=== PATIENT | male | born 1985 | race Caucasian/White ===

== ENCOUNTER 2016-11-30 08:14 | Emergency (ER) | payer OTHER, MEDICAID ==
[2016-11-30] MEDS ORDERED: HYDROCODONE/ACETAMINOPHEN 5-325 MG 6 TAB/DSPK PO PRN (09:46)
[2016-11-30] MEDS ORDERED: CLINDAMYCIN HCL 150 MG CAPSULE PO ONE (09:46)
--- NOTE | 2016-11-30 09:53 | ER Document Report ---
ED ENT - General Chief Complaint: Facial Swelling Stated Complaint: FACIAL SWELLING Time seen by provider: 09:47 Mode of Arrival: Ambulatory Information source: Patient Notes: 31-year-old male presents to ED for left upper cheek swelling. He states he's had this dental pain to the tooth 6 and 7 off and on for months with swelling to his face off and on for the same month. TRAVEL OUTSIDE OF THE [place] IN LAST 30 DAYS: No - HPI Patient complains to provider of: Dental problem Onset: Other Onset/Duration: Intermittent - Off and on for months Quality of pain: Stabbing - Throbbing Severity: Moderate Pain Level: 3 Location of pain: Face, Tooth Associated symptoms: Face swelling, Jaw swelling Similar symptoms previously: Yes Recently seen / treated by doctor: No - Related Data Allergies/Adverse Reactions: Shellfish * [Shellfish] Allergy (Verified 11/30/16 08:46) Throat Itching Home Medications: Current Home Medications Gabapentin [Gabapentin] 600 mg PO DAILY 11/30/16 [History] Past Medical History - General Information source: Patient - Social History Smoking Status: Current Every Day Smoker Cigarette use (# per day): Yes - half pack a day Chew tobacco use (# tins/day): No Smoking Education Provided: Yes - less than 2 minutes Frequency of alcohol use: None Drug Abuse: None Occupation: Procedures Analyst and screw remover Lives with: Spouse/Significant other Family History: denies: Arthritis, CAD, COPD, CVA, DM, Hyperlipidemia, Hypertension, Malignancy, Thyroid Disfunction Patient has suicidal ideation: No Patient has homicidal ideation: No - Past Medical History Cardiac Medical History: Reports: Hx Atrial Fibrillation Pulmonary Medical History: Reports: Hx Asthma EENT Medical History: Reports: None Neurological Medical History: Reports: None Endocrine Medical History: Reports: None Renal/ Medical History: Reports: None Malignancy Medical History: Reports None Musculoskeltal Medical History: Reports Hx Musculoskeletal Deformity, Reports Hx Musculoskeletal Trauma Skin Medical History: Reports None Psychiatric Medical History: Reports: Hx Anxiety Traumatic Medical History: Reports: None Infectious Medical History: Reports: None Past Surgical History: Reports: Hx Orthopedic Surgery - Rt knee - Immunizations Immunizations up to date: Yes Hx Diphtheria, Pertussis, Tetanus Vaccination: Yes Review of Systems - Review of Systems Constitutional: No symptoms reported EENT: Mouth swelling, Dental problem - #12 Cardiovascular: No symptoms reported Respiratory: No symptoms reported Gastrointestinal: No symptoms reported Genitourinary: No symptoms reported Male Genitourinary: No symptoms reported Musculoskeletal: No symptoms reported Skin: No symptoms reported Hematologic/Lymphatic: No symptoms reported Neurological/Psychological: No symptoms reported Physical Exam - Vital signs Vitals: Temp Pulse Resp BP Pulse Ox 98.3 F 90 20 137/75 H 97 11/30/16 08:19 11/30/16 08:19 11/30/16 08:19 11/30/16 08:19 11/30/16 08:19 Interpretation: Normal - General General appearance: Appears well, Alert - HEENT Head: Normocephalic, Atraumatic Eyes: Normal Pupils: PERRL Ears: Normal External canal: Normal Tympanic membrane: Normal Sinus: Normal Nasal: Normal Mouth/Lips: Caries Teeth diagram: 1 - Most of the tooth missing at the gumline gumline swollen facial swelling just above the gumline. Patient states this is been going on off and on for the last month - Respiratory Respiratory status: No respiratory distress Chest status: Nontender Breath sounds: Normal Chest palpation: Normal - Cardiovascular Rhythm: Regular Heart sounds: Normal auscultation Murmur: No - Abdominal Inspection: Normal Distension: No distension Bowel sounds: Normal Tenderness: Nontender Organomegaly: No organomegaly - Back Back: Normal, Nontender - Extremities General upper extremity: Normal inspection, Nontender, Normal color, Normal ROM , Normal temperature General lower extremity: Normal inspection, Nontender, Normal color, Normal ROM , Normal temperature, Normal weight bearing. No: Yolie's sign - Neurological Neuro grossly intact: Yes Cognition: Normal Orientation: AAOx4 Gian Coma Scale Eye Opening: Spontaneous Gian Coma Scale Verbal: Oriented [place] Coma Scale Motor: Obeys Commands Gian Coma Scale Total: 15 Speech: Normal Motor strength normal: LUE, RUE, LLE, RLE Sensory: Normal - Psychological Associated symptoms: Normal affect, Normal mood - Skin Skin Temperature: Warm Skin Moisture: Dry Skin Color: Normal Course - Re-evaluation Re-evalutation: Dr. Castillo recommended calling one of the dentist to schedule a plan for treatment for this tooth. Consult to Dr. zelaya dentistry he stated he would see the patient for his dental infection if the patient were called today and schedule a follow-up appointment. He recommended patient be started on clindamycin and steroids as well as pain medicine. [facility] Oral: Grady Peng DDS WebsiteDirections Dentist in [place], [place] Address: [address] , [place] [address] - Vital Signs Vital signs: Temp Pulse Resp BP Pulse Ox 98.3 F 90 18 137/75 H 97 11/30/16 08:19 11/30/16 08:19 11/30/16 08:30 11/30/16 08:19 11/30/16 08:19 Discharge - Discharge Clinical Impression: Dental infection, Facial swelling Condition: Stable Disposition: HOME, SELF-CARE Additional Instructions: TOOTHACHE: Your pain is due to dental decay. The tooth must be repaired in order for you to feel better. You will, therefore, be referred to a dentist. We do not have dentists on the staff at [facility]. Severe swelling or drainage around a tooth usually means a dental abscess. This also requires evaluation and treatment by the dentist, but antibiotics may be prescribed while awaiting dental treatment. You should be rechecked immediately if you develop major swelling of the face, increasing pain, a lump in the jaw or gums, headache, difficulty swallowing, or fever. ORAL NARCOTIC MEDICATION: You have been given a prescription for pain control. This medication is a narcotic. It's best taken with food, as nausea can result if taken on an empty stomach. Don't operate machinery or drive within six hours of taking this medication. Do not combine this medicine with alcohol, or with any medication which can cause sedation (such as cold tablets or sleeping pills) unless you get permission from the physician. Narcotics tend to cause constipation. If possible, drink plenty of fluids and eat a diet high in fiber and fruits. Please be aware that prescription narcotics also have the potential for abuse. People become addicted to these medications because of the general sense of wellbeing that they induce. This feeling along with a significant reduction in tension, anxiety, and aggression provides a stimulating seductive quality to these drugs. Once your pain is under control, we encourage you to discard your unused narcotics. STEROID MEDICATION: You have been given a medicine of the cortisone/steroid class. This medication is used to control inflammation or allergy. It is usually only given for a short period of time, until the acute process subsides. There are usually no side effects from short-term use of cortisone-like medications. Some persons feel an increased sense of well-being and are not sleepy at bedtime. Long-term use of cortisone medications is best avoided, unless required for a severe condition. If your condition does not remit, or relapses after the course of corticosteroid medication, you should consult your physician. CLINDAMYCIN: You have been given a prescription for the antibiotic clindamycin. It is often prescribed for infections in the mouth, such as dental infections or abscesses, and for skin infections due to MRSA. It's important that you take all the medication, unless instructed otherwise by your physician. Failure to complete the entire course can result in relapse of your condition. Common side effects of antibiotics include nausea, intestinal cramping, or diarrhea. Women may develop vaginal yeast infections, and babies can get yeast (thrush) in the mouth following the use of antibiotics. Contact your physician if you develop significant side effects from this medication. Allergy to this antibiotic can result in hives, wheezing, faintness, or itching. If symptoms of allergy occur, stop the medication and call the doctor. FOLLOW-UP CARE: You have been referred for follow-up care to the dentists listed below. Call the dentists office for an appointment as you were instructed or within the next two days. If you experience worsening or a significant change in your symptoms, notify the physician immediately or return to the Emergency Department at any time for re-evaluation. [facility] [address] [place], [place] Monday mornings, by appointment [facility] [address] [place] [address] [facility] [address] [facility] [address] [facility] [address] [facility] [address] [email or web address] [address] [place] [address] Monday- 8:00am to 5:00 pm Will see patients from other [facility]. Charges based on income and family size and accepts Medicare, Medicaid, and Insurances Will pull molars [facility] [address] Hours of Operation 8:00 am - 4:30 pm weekdays The following dental offices accept Medicaid: [facility] Dr. Duong Dr. Khan Dr. Schrader Dr. Sebastian Juvencio Morse, Feli, and Khris oral surgery Dr. Fox ([place]) Dr. Younger ([place]) [facility] Drs. Arredondo and Kamron ([place]) Dr. Stallings ([place]) [facility] Dr. Brown ([place]) Drs. Murphy and ([place]) Medicaid Care Line Dr. zelaya stated that if you would call him today they will schedule an appointment fix your tooth. He recommended that you get clindamycin and steroids started today. [facility] Oral: Grady Peng DDS [employer] Dentist in [place], [place] Address: [address] [place] [address] , [place] [address] Prescriptions: Clindamycin HCl 300 mg PO Q6 #28 capsule Prednisone [Deltasone 20 mg Tablet] 3 tab PO DAILY 5 Days Forms: Elevated Blood Pressure, Smoking Cessation Education, Return to Work Referrals: AYESHA ZELAYA DDS [ACTIVE STAFF] - 11/30/16 (Call by telephone today to schedule follow-up appointment)
[2016-11-30] MEDS ORDERED: PREDNISONE 20 MG TABLET PO ONE (10:03)
[2016-11-30 10:20] VITALS: BP 133/89
== END 2016-11-30 10:17 | disposition home or self-care (01) ==
LOC: ER 08:14
DX: K04.7 Periapical abscess without sinus (principal); R22.0 Localized swelling, mass and lump, head; F17.200 Nicotine dependence, unspecified, uncomplicated; I48.91 Unspecified atrial fibrillation; Z91.013 Allergy to seafood
CPT/HCPCS: 99283; J7512

== ENCOUNTER 2016-12-25 12:31 | Emergency (ER) | payer MEDICAID, OTHER ==
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
[2016-12-25] MEDS ORDERED: BUPIVACAINE HCL 0.5 % INJ/PF 30 ML SDV INJ ONE (14:22)
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
[2016-12-25 16:18] VITALS: BP 155/93
== END 2016-12-25 16:18 | disposition home or self-care (01) ==
LOC: ER 12:31
PROC: 3E0T3BZ Introduction of Anesthetic Agent into Peripheral Nerves and Plexi, Percutaneous Approach (ICD-10-PCS; principal; 2016-12-25)
DX: S62.606A Fracture of unspecified phalanx of right little finger, initial encounter for closed fracture (principal); S63.296A Dislocation of distal interphalangeal joint of right little finger, initial encounter; X58.XXXA Exposure to other specified factors, initial encounter; J45.909 Unspecified asthma, uncomplicated; F17.200 Nicotine dependence, unspecified, uncomplicated; Z91.013 Allergy to seafood
CPT/HCPCS: 99284

== ENCOUNTER 2017-04-06 16:28 | Emergency (ER) | payer OTHER ==
[2017-04-06] MEDS ORDERED: ACETAMINOPHEN 325 MG TABLET PO ONE (18:04)
[2017-04-06 18:23] LABS: ABSOLUTE BASOPHILS # (AUTO) 0.2 10^3/uL (0.0-0.2); ABSOLUTE EOSINOPHILS # (AUTO) 0.3 10^3/uL (0.0-0.6); ABSOLUTE LYMPHOCYTES (AUTO) 2.6 10^3/uL (0.5-4.7); ABSOLUTE MONOCYTES (AUTO) 1.7 10^3/uL (0.1-1.4); ABSOLUTE NEUT (AUTO) 9.1 10^3/uL (1.7-8.2); BASOPHILS % (AUTO) 1.1 % (0-2); HEMATOCRIT 43.7 % (37.9-51.0); HEMOGLOBIN 13.9 g/dL (13.5-17.0); LYMPHOCYTES % (AUTO) 18.7 % (13-45); MEAN CORPUSCULAR HEMOGLOBIN 28.3 pg (27.0-33.4); MEAN CORPUSCULAR HGB CONC 31.8 g/dL (32.0-36.0); MEAN CORPUSCULAR VOLUME 89 fl (80-97); MONOCYTES % (AUTO) 12.4 % (3-13); RED BLOOD COUNT 4.91 10^6/uL (4.35-5.55); RED CELL DISTRIBUTION WIDTH 13.7 % (11.5-14.0); SEGMENTED NEUTROPHILS % (AUTO) 65.8 % (42-78); WHITE BLOOD COUNT 13.8 10^3/uL (4.0-10.5)
--- NOTE | 2017-04-06 19:05 | ER Document Report ---
ED Wound - General Chief Complaint: Wound Infection Stated Complaint: LEG PROBLEM Time Seen by Provider: 04/06/17 17:18 Notes: 31-year-old male who presents emergency department complaining of right lower extremity wound that has been there for about 3 weeks. 2 weeks ago he completed a 10 day course of clindamycin. Patient states that this area in the posterior aspect of his ankle has improved but still evidence of scabbing but the area on his anterior tibia has not gone away. Admits to pain and swelling of the right lower extremity. TRAVEL OUTSIDE OF THE [place] IN LAST 30 DAYS: No - Related Data Allergies/Adverse Reactions: No Known Drug Allergies Allergy (Verified 04/06/17 16:55) Shellfish * [Shellfish] Allergy (Verified 04/06/17 16:55) Throat Itching Past Medical History - Social History Smoking Status: Current Every Day Smoker Family History: None Patient has suicidal ideation: No Patient has homicidal ideation: No - Past Medical History Cardiac Medical History: Reports: Hx Atrial Fibrillation Pulmonary Medical History: Reports: Hx Asthma Renal/ Medical History: Denies: Hx Peritoneal Dialysis Musculoskeltal Medical History: Reports Hx Musculoskeletal Deformity, Reports Hx Musculoskeletal Trauma Psychiatric Medical History: Reports: Hx Anxiety Past Surgical History: Reports: Hx Orthopedic Surgery - Rt knee - Immunizations Immunizations up to date: Yes Hx Diphtheria, Pertussis, Tetanus Vaccination: Yes Review of Systems - Review of Systems Constitutional: No symptoms reported Musculoskeletal: See HPI Skin: See HPI -: Yes All other systems reviewed and negative Physical Exam - Vital signs Vitals: Temp Pulse Resp BP Pulse Ox 99.0 F 102 H 18 153/91 H 96 04/06/17 16:51 04/06/17 16:51 04/06/17 16:51 04/06/17 16:51 04/06/17 16:51 - General General appearance: Appears well, Alert In distress: None - Cardiovascular Rhythm: Regular Heart sounds: Normal auscultation, S1 appreciated, S2 appreciated Pulses: Normal: Radial, Dorsalis pedis Normal capillary refill: Yes - Extremities General lower extremity: Nontender, Edema - 1+ pitting edema of RLE, Normal color - minimal erythema or RLE, Normal ROM, Normal strength, Normal weight bearing - Neurological Motor strength normal: LLE, RLE Sensory: Normal - Skin Notes: RLE mid tibia with central lceration with minimal purulent discharge. associated cellulitis surrounding Course - Re-evaluation Re-evalutation: 04/06/17 21:48 Is a 31-year-old male who is hemodynamic stable, no acute distress and afebrile. No evidence of leukocytosis noted on CBC. Antibiotics, wound culture sent. Patient given strict return precautions and follow-up instructions. Patient is agreeable to plan. - Vital Signs Vital signs: Temp Pulse Resp BP Pulse Ox 98.4 F 102 H 16 133/69 H 99 04/06/17 19:50 04/06/17 16:51 04/06/17 19:50 04/06/17 19:50 04/06/17 19:50 - Laboratory Result Diagrams: 04/06/17 17:53 Laboratory results interpreted by me: 04/06/17 17:53 WBC 13.8 H MCHC 31.8 L Absolute Neutrophils 9.1 H Absolute Monocytes 1.7 H Discharge - Discharge Clinical Impression: Wound cellulitis Condition: Good Disposition: HOME, SELF-CARE Instructions: Cellulitis ([facility]) Additional Instructions: Please follow-up with your primary care provider after he completes her antibiotics if her site is not improved. Please return with any signs of worsening inflammation such as redness, tenderness, drainage, pain. Prescriptions: Cephalexin Monohydrate [Keflex 500 mg Capsule] 500 mg PO QID 7 Days Sulfamethoxazole/Trimethoprim [Bactrim Ds Tablet] 2 each PO BID #14 tablet Referrals: VIOLETTA LEIVA MD [ACTIVE STAFF] - Follow up in 1 week
[2017-04-06] MEDS ORDERED: CEPHALEXIN 500 MG CAPSULE PO ONE (19:06)
[2017-04-06] MEDS ORDERED: SULFAMETHOXAZOLE/TRIMETHOPRIM 800-160 MG TABLET PO ONE (19:06)
[2017-04-06 19:56] VITALS: BP 133/69
== END 2017-04-06 19:56 | disposition home or self-care (01) ==
LOC: ER 16:28
DX: L03.818 Cellulitis of other sites (principal); M79.604 Pain in right leg; F17.200 Nicotine dependence, unspecified, uncomplicated; M79.89 Other specified soft tissue disorders
CPT/HCPCS: 36415; 85025; 87070; 87075; 87205; 99283